=== PATIENT | male | born 2000 | race Caucasian/White ===

== ENCOUNTER 2025-01-06 16:29 | Emergency (ER) | payer SELFPAY ==
[~2025-01-06] VITALS: Ht 185.4 cm; Wt 160.0 kg
[2025-01-06 16:34] VITALS: O2SAT 100
[2025-01-06 19:53] VITALS: TEMP 36.9; O2SAT 98
[2025-01-06] MEDS ORDERED: LIDO-53 TP (19:56)
[2025-01-06] MEDS ORDERED: CYCL10TA21 MT (19:56)
[2025-01-06] MEDS ORDERED: IBUP-2029 MT (19:56)
[2025-01-06] MEDS: LIDOCAINE 5% PATCH TOP SCH (20:11)
[2025-01-06 20:15] VITALS: BP 153/85; PULSE 64; RESP 18
[2025-01-06] MEDS: KETOROLAC 30MG/ML VIAL IM ONE (20:15)
== END 2025-01-06 20:10 | disposition home or self-care (01) ==
LOC: ER 16:29
DX: M54.50 Low back pain, unspecified (principal)
CPT/HCPCS: 99283; 96372; J1885